=== PATIENT | male | born 1995 | race Caucasian/White ===

== ENCOUNTER 2019-10-28 07:06 | Emergency (ER) | payer BC, OTHER ==
[2019-10-28] MEDS ORDERED: HYDROcodone/Acetaminophen 10/325 mg Tablet ONE (07:28)
[2019-10-28] MEDS ORDERED: Ketorolac Tromethamine 30 MG/ML VIAL ONE (07:28)
--- NOTE | 2019-10-28 17:31 | RAD ---
LUMBAR SPINE THREE VIEWS: Date: 10-28-2019 FINDINGS: No fracture, dislocation, or disc space narrowing was seen. No bony anomalies were present. At most, there may be minor loss of the normal lordosis. The SI joints appear normal. IMPRESSION: No acute bony findings. POS: HOME
== END 2019-10-28 08:28 | disposition home or self-care (01) ==
LOC: BURERS 07:06
DX: M54.5 Low back pain (principal); F17.210 Nicotine dependence, cigarettes, uncomplicated
CPT/HCPCS: 72100; 96372; J1885